=== PATIENT | female | born 1930 | race Caucasian/White ===

== ENCOUNTER 2018-01-07 00:53 | Observation (INO) | payer OTHER, MEDICARE ==
[2018-01-07 01:05] LABS: PLATELET COUNT 156 10^3/uL (150-400)
[2018-01-07] MEDS ORDERED: ASPIRIN 325 MG TAB PO ONE (01:08)
--- NOTE | 2018-01-07 01:11 | EDPHY ---
H & P Stated Complaint: FROM ID CP SINCE 2 P.M. PRESSURE IN CHEST/STENT 11/03 Time Seen by Provider: 01/07/18 00:58 HPI/ROS: Chief Complaint: Chest pain HPI: 87-year-old woman with a history of coronary artery disease status post stenting in September. She is visiting from [place]. She arrived today and went up to [place]. At 2:00 a.m. This afternoon she has started developing substernal chest pressure, 2/10. This persisted in the evening until 11:00 a.m. In the evening when it became significantly worse, up to an 8/10. [place] She took 3 nitroglycerin around. She is now pain-free. She also has a history of hypertension hyperlipidemia. Did have a mild GA at the time of her stenting in September. No recent illness. No leg pain or swelling. ROS: 10 systems were reviewed and were negative except those elements noted in the HPI. PMH: Coronary artery disease, hypertension, hyperlipidemia Social History: No smoking, no alcohol, no recreational drug use Family History: non-contributory Physical Exam: Gen: Awake, Alert, No Distress HEENT: Nose: no rhinorrhea Eyes: PERRLA, EOMI Mouth: Moist mucosa Neck: Supple, no JVD Chest: nontender, lungs clear to auscultation Heart: S1, S2 normal, 3 in 6 systolic murmur best heard in the right heart border Abd: Soft, non-tender, no guarding Back: no CVA tenderness, no midline tenderness Ext: no edema, non-tender Skin: no rash Neuro: CN II-XII intact, Sensation grossly intact, Strength 5/5 in bilateral upper and lower extremities - Personal History Current Tetanus/Diphtheria Vaccine: Yes Current Tetanus Diphtheria and Acellular Pertussis (TDAP): Yes - Medical/Surgical History Hx Asthma: No Hx Chronic Respiratory Disease: No Hx Diabetes: Yes Hx Cardiac Disease: No Hx Renal Disease: No Hx Cirrhosis: No Hx Alcoholism: No Hx HIV/AIDS: No Hx Splenectomy or Spleen Trauma: No Other PMH: GA 2018 WITH STENTS, HTN, HIGH CHOLESTEROL, HYPERTHYROID, - Social History Smoking Status: Never smoked Constitutional: Initial Vital Signs Temperature (C) 37.1 C 01/07/18 00:55 Heart Rate 103 H 01/07/18 00:55 Respiratory Rate 18 01/07/18 00:55 Blood Pressure 175/92 H 01/07/18 00:55 O2 Delivery Mode Room Air O2 (L/minute) 4 Allergies/Adverse Reactions: No Known Allergies Allergy (Unverified 01/07/18 01:08) Home Medications: Medication Instructions Recorded Ascorbic Acid [Vitamin C] 1,000 mg PO 01/07/18 Cholecalciferol (Vitamin D3) 1,000 unit PO 01/07/18 [Vitamin D3] Clopidogrel Bisulfate [Plavix] 75 mg PO 01/07/18 Denosumab [Prolia] 60 mg SQ 01/07/18 Levothyroxine [Synthroid 88 mcg 88 mcg PO DAILY06 01/07/18 (*)] Multivitamins [Multivitamin (*)] 1 each PO DAILY 01/07/18 Rosuvastatin Calcium [Crestor 40mg 40 mg PO DAILY 01/07/18 (*)] Medical Decision Making - Diagnostics EKG Interpretation: ECG time 12:56 a.m., sinus tachycardia with a rate of 102, T-wave inversions in AVF. Nonspecific T-wave changes in V3 and V4. No acute ST segment changes. Imaging Results: CT scan of the chest is negative for PE. There is atherosclerotic disease in the coronary arteries in the aorta. No acute pulmonary disease per Dr. Crane. Imaging: Discussed imaging studies w/ call center coordinator Radiologist ED Course/Re-evaluation: 87-year-old [place] with chest pain and shortness of breath. Initial oxygen saturations are 80%. She is improved with oxygen here. No acute ischemic changes on her ECG. Initial D-dimer is elevated. Will obtain CT angiogram of the chest to rule out PE. CT scan of the chest is negative for PE. There is atherosclerotic disease in the coronary arteries in the aorta. No acute pulmonary disease per Dr. Crane. Patient remains pain-free. I have discussed with the hospitalist, Dr. Thrasher. He will admit to his service for further care. - Data Points Laboratory Results: Laboratory Results 01/07/18 00:58 01/07/18 00:58 01/07/18 01/07/18 01/07/18 01:01 00:58 00:58 WBC RBC Hgb Hct MCV MCH MCHC RDW Plt Count MPV Neut % (Auto) Lymph % (Auto) Sutter % (Auto) Eos % (Auto) Baso % (Auto) Nucleat RBC Rel Count Absolute Neuts (auto) Absolute Lymphs (auto) Absolute Monos (auto) Absolute Eos (auto) Absolute Basos (auto) Absolute Nucleated RBC Immature Gran % Immature Gran # D-Dimer 1.16 ug/mLFEU H ug/mLFEU (0.00-0.50) Sodium 140 mEq/L mEq/L (135-145) Potassium 4.4 mEq/L mEq/L (3.3-5.0) Chloride 102 mEq/L mEq/L (97-110) Carbon Dioxide 29 mEq/l mEq/l (22-31) Anion Gap 9 mEq/L mEq/L (8-16) BUN 29 mg/dL H mg/dL (7-23) Creatinine 0.8 mg/dL mg/dL (0.6-1.0) Estimated GFR > 60 Glucose 108 mg/dL H mg/dL (70-100) Calcium 9.4 mg/dL mg/dL (8.5-10.4) POC Troponin I 0.03 ng/mL ng/mL (0.00-0.08) 01/07/18 00:58 WBC 5.24 10^3/uL 10^3/uL (3.80-9.50) RBC 4.21 10^6/uL 10^6/uL (4.18-5.33) Hgb 13.1 g/dL g/dL (12.6-16.3) Hct 41.7 % % (38.0-47.0) MCV 99.0 fL fL (81.5-99.8) MCH 31.1 pg pg (27.9-34.1) MCHC 31.4 g/dL L g/dL (32.4-36.7) RDW 13.6 % % (11.5-15.2) Plt Count 156 10^3/uL 10^3/uL (150-400) MPV 9.3 fL fL (8.7-11.7) Neut % (Auto) 62.6 % % (39.3-74.2) Lymph % (Auto) 29.2 % % (15.0-45.0) Sutter % (Auto) 5.9 % % (4.5-13.0) Eos % (Auto) 1.1 % % (0.6-7.6) Baso % (Auto) 1.0 % % (0.3-1.7) Nucleat RBC Rel Count 0.0 % % (0.0-0.2) Absolute Neuts (auto) 3.28 10^3/uL 10^3/uL (1.70-6.50) Absolute Lymphs (auto) 1.53 10^3/uL 10^3/uL (1.00-3.00) Absolute Monos (auto) 0.31 10^3/uL 10^3/uL (0.30-0.80) Absolute Eos (auto) 0.06 10^3/uL 10^3/uL (0.03-0.40) Absolute Basos (auto) 0.05 10^3/uL 10^3/uL (0.02-0.10) Absolute Nucleated RBC 0.00 10^3/uL 10^3/uL (0-0.01) Immature Gran % 0.2 % % (0.0-1.1) Immature Gran # 0.01 10^3/uL 10^3/uL (0.00-0.10) D-Dimer Sodium Potassium Chloride Carbon Dioxide Anion Gap BUN Creatinine Estimated GFR Glucose Calcium POC Troponin I Medications Given: Discontinued Medications Aspirin (Aspirin) 325 mg PO EDNOW ONE Stop: 01/07/18 01:09 Last Admin: 01/07/18 01:11 Dose: 325 mg Point of Care Test Results: Chemistry 01/07/18 01:01 POC Troponin I 0.03 ng/mL ng/mL (0.00-0.08) Departure - Departure Disposition: [facility] Acute Clinical Impression: Chest pain Condition: Fair
[2018-01-07] MEDS ORDERED: IOPAMIDOL (ISOVUE 370) 100 ML BTL IV ONE (01:35)
[2018-01-07] MEDS ORDERED: ACETAMINOPHEN 325 MG TAB PO PRN (02:16)
[2018-01-07] MEDS ORDERED: ONDANSETRON 4 MG/2 ML VIAL IVP PRN (02:16)
[2018-01-07] MEDS ORDERED: ONDANSETRON DISINTEGRATING 4 MG TAB PO PRN (02:16)
--- NOTE | 2018-01-07 02:43 | PDGENHP ---
History and Physical - Chief Complaint Chest pain - History of Present Illness 87 yo F w/ hx of CAD s/p PCI 2 months ago presents with chest pain. Patient is visiting from [place]. She traveled to [place] today and had an episode of severe central chest pain at rest. The pain radiated to her back and reminded her of her previous angina leading to the stent placement. She took NTG x3 and the pain resolved. She is chest pain free currently. ECG reveals inferior TWI's and troponin is negative. Of note, she stopped taking her aspirin 2 days ago at the advise of her son, who is a home staging specialist. She is still taking Plavix. Case discussed with ED physician Dr. Handy; records reviewed in EMR. History Information - Allergies/Home Medication List Allergies/Adverse Reactions: No Known Allergies Allergy (Unverified 01/07/18 01:08) Home Medications: Ascorbic Acid [Vitamin C] 1,000 mg PO 01/07/18 [Last Taken Unknown] Cholecalciferol (Vitamin D3) [Vitamin D3] 1,000 unit PO 01/07/18 [Last Taken Unknown] Clopidogrel Bisulfate [Plavix] 75 mg PO 01/07/18 [Last Taken Unknown] Denosumab [Prolia] 60 mg SQ 01/07/18 [Last Taken Unknown] Levothyroxine [Synthroid 88 mcg (*)] 88 mcg PO DAILY06 01/07/18 [Last Taken Unknown] Multivitamins [Multivitamin (*)] 1 each PO DAILY 01/07/18 [Last Taken Unknown] Rosuvastatin Calcium [Crestor 40mg (*)] 40 mg PO DAILY 01/07/18 [Last Taken Unknown] I have personally reviewed and updated: family history, medical history - Past Medical History coronary artery disease - Surgical History Reports: coronary stent - Family History Additional family history: Adult daughter in the room healthy - Social History Smoking Status: Never smoked Review of Systems Review of Systems: ROS: 10pt was reviewed & negative except for what was stated in HPI & below Physical Exam Physical Exam: Temp Pulse Resp BP Pulse Ox 36.8 C 94 18 176/98 H 98 01/07/18 02:00 01/07/18 02:00 01/07/18 02:00 01/07/18 02:00 01/07/18 02:00 Constitutional: no apparent distress, not in pain Eyes: PERRL, EOMI Ears, Nose, Mouth, Throat: moist mucous membranes, no oral mucosal ulcers Cardiovascular: regular rate and rhythym, systolic murmur Respiratory: no respiratory distress, clear to auscultation Gastrointestinal: normoactive bowel sounds, soft, non-tender abdomen Skin: warm, normal color Musculoskeletal: full muscle strength, no muscle tenderness Neurologic: AAOx3, CN II-XII Intact Psychiatric: interacting appropriately, not anxious Lab Data & Imaging Review 01/07/18 00:58 01/07/18 00:58 WBC 5.24 10^3/uL (3.80-9.50) 01/07/18 00:58 RBC 4.21 10^6/uL (4.18-5.33) 01/07/18 00:58 Hgb 13.1 g/dL (12.6-16.3) 01/07/18 00:58 Hct 41.7 % (38.0-47.0) 01/07/18 00:58 MCV 99.0 fL (81.5-99.8) 01/07/18 00:58 MCH 31.1 pg (27.9-34.1) 01/07/18 00:58 MCHC 31.4 g/dL (32.4-36.7) L 01/07/18 00:58 RDW 13.6 % (11.5-15.2) 01/07/18 00:58 Plt Count 156 10^3/uL (150-400) 01/07/18 00:58 MPV 9.3 fL (8.7-11.7) 01/07/18 00:58 Neut % (Auto) 62.6 % (39.3-74.2) 01/07/18 00:58 Lymph % (Auto) 29.2 % (15.0-45.0) 01/07/18 00:58 Mccone % (Auto) 5.9 % (4.5-13.0) 01/07/18 00:58 Eos % (Auto) 1.1 % (0.6-7.6) 01/07/18 00:58 Baso % (Auto) 1.0 % (0.3-1.7) 01/07/18 00:58 Nucleat RBC Rel Count 0.0 % (0.0-0.2) 01/07/18 00:58 Absolute Neuts (auto) 3.28 10^3/uL (1.70-6.50) 01/07/18 00:58 Absolute Lymphs (auto) 1.53 10^3/uL (1.00-3.00) 01/07/18 00:58 Absolute Monos (auto) 0.31 10^3/uL (0.30-0.80) 01/07/18 00:58 Absolute Eos (auto) 0.06 10^3/uL (0.03-0.40) 01/07/18 00:58 Absolute Basos (auto) 0.05 10^3/uL (0.02-0.10) 01/07/18 00:58 Absolute Nucleated RBC 0.00 10^3/uL (0-0.01) 01/07/18 00:58 Immature Gran % 0.2 % (0.0-1.1) 01/07/18 00:58 Immature Gran # 0.01 10^3/uL (0.00-0.10) 01/07/18 00:58 D-Dimer 1.16 ug/mLFEU (0.00-0.50) H 01/07/18 00:58 Sodium 140 mEq/L (135-145) 01/07/18 00:58 Potassium 4.4 mEq/L (3.3-5.0) 01/07/18 00:58 Chloride 102 mEq/L (97-110) 01/07/18 00:58 Carbon Dioxide 29 mEq/l (22-31) 01/07/18 00:58 Anion Gap 9 mEq/L (8-16) 01/07/18 00:58 BUN 29 mg/dL (7-23) H 01/07/18 00:58 Creatinine 0.8 mg/dL (0.6-1.0) 01/07/18 00:58 Estimated GFR > 60 01/07/18 00:58 Glucose 108 mg/dL (70-100) H 01/07/18 00:58 Calcium 9.4 mg/dL (8.5-10.4) 01/07/18 00:58 POC Troponin I 0.03 ng/mL (0.00-0.08) 01/07/18 01:01 Imaging Review: CTPE Prelim: CT PE: No PE No infiltrates Small calc granulomas on right Old healed left rib fxs, sternal fx, and T6 compression Extensive vasc calcification aorta and coronaries Spoke w Dr Handy at 209am Finer Assessment & Plan Assessment: 87 yo F w/ hx of CAD s/p PCI presents with chest pain. Plan: 1. Chest pain - Central chest pain radiating to back, relieved with NTG. This reminded her of previous angina leading to stent placement 2 months ago. ECG reveals TWI's in leads III, AVF; troponin negative. HEART score of 6 indicative of need for further testing. - Admit to PCU for observation - Monitor on telemetry, trend cardiac enzymes - Noting mildly abnormal ECG and previous revascularization, will order exercise stress with MPI (patient tells me she usually exercises for stress tests) 2. Hx CAD - w/ LUDMILA to RCA 2 months ago in [place]. She is taking Plavix but stopped taking ASA 2 days ago. - Acute management as above - Advised to continue DAPT for at least 1 year 3. Hypothyroid - Continue LTX Diet - NPO Code - Full Ppx - LMWH Dispo - Admit under observation status
--- NOTE | 2018-01-07 05:06 | CPEKG ---
Test Reason : OPEN Blood Pressure : / mmHG Vent. Rate : 092 BPM Atrial Rate : 093 BPM P-R Int : 165 ms QRS Dur : 090 ms QT Int : 369 ms P-R-T Axes : 037 001 -21 degrees QTc Int : 457 ms Sinus rhythm Nonspecific T abnormalities, inferior leads Confirmed by Luc Handy ([id number]) on 01/07/2018 5:05:21 AM Referred By: Confirmed By:Luc Handy
--- NOTE | 2018-01-07 05:06 | CPEKG ---
Test Reason : OPEN Blood Pressure : / mmHG Vent. Rate : 102 BPM Atrial Rate : 102 BPM P-R Int : 178 ms QRS Dur : 093 ms QT Int : 377 ms P-R-T Axes : 053 007 -30 degrees QTc Int : 492 ms Sinus tachycardia Abnormal T, consider ischemia, inferior leads Confirmed by Luc Handy ([id number]) on 01/07/2018 5:05:21 AM Referred By: Confirmed By:Luc Handy
[2018-01-07 07:55] LABS: PLATELET COUNT 148 10^3/uL (150-400)
[2018-01-07] MEDS ORDERED: FAMOTIDINE 20 MG TAB PO ONE (09:33)
[2018-01-07] MEDS ORDERED: TEMAZEPAM 15 MG CAP PO PRN (09:33)
[2018-01-07] MEDS ORDERED: NITROGLYCERIN 0.4 MG BTL SL PRN (09:33)
[2018-01-07] MEDS ORDERED: diphenhydrAMINE 25 MG CAP PO ONE (09:33)
[2018-01-07] MEDS ORDERED: DIAZEPAM 5 MG TAB PO ONE (09:33)
[2018-01-07] MEDS ORDERED: fentaNYL 100 MCG/2 ML INJ ONE (09:58)
[2018-01-07] MEDS ORDERED: IOPAMIDOL (ISOVUE-370) 150 ML BTL IV ONE (09:58)
[2018-01-07] MEDS ORDERED: MIDAZOLAM 2 MG/2 ML VIAL ONE (09:58)
[2018-01-07] MEDS ORDERED: LIDOCAINE 1% 300 MG/30 ML SDV ONE (09:58)
[2018-01-07] MEDS ORDERED: ASPIRIN EC 325 MG TAB PO ONE (10:13)
[2018-01-07] MEDS: CLOPIDOGREL BISULFATE 75 MG TAB PO SCH (10:16)
--- NOTE | 2018-01-07 10:17 | GCON ---
CARDIOLOGY CONSULTATION DATE OF CONSULTATION: 01/07/2018 INDICATION FOR CONSULTATION: New onset of acute substernal chest pain, known history of coronary art primitivo disease, positive troponin, and noncompliance with aspirin therapy. HISTORY OF PRESENT ILLNESS: The patient is a pleasant 87-year-old female from [place], who flew from [facility] to [place] and then drove up to [place] to visit her grandson yesterday. She sta karlee that last evening she developed an acute onset of substernal chest pressure that radiated to her back associated with shortness of breath that felt identical to the pain she experienced approximatel y 2 months ago that resulted in percutaneous coronary intervention to the right coronary artery x2 wi th a complex intervention with atherectomy of a chronic total occlusion per her son who is a rheumato logist. The patient states that the symptoms persisted. She was able to take sublingual nitroglycer in x3, which resolved her pain completely. Upon arrival to [facility], she states he r pain is completely resolved. Her initial ECG demonstrated sinus rhythm with T-wave inversions in t he inferior leads. Initial troponin was negative. Subsequent followup troponin was elevated with a value of 0.047. Currently, at the time of my exam, she is resting comfortably. She is pain-free. PAST MEDICAL HISTORY: Notable for newly diagnosed coronary artery disease. No other significant past medical history. MEDICATIONS ON ADMISSION: Include vitamin C 1000 mg daily, vitamin D3 1000 units daily, Plavix 75 mg daily, Prolia 60 mg subcu, Synthroid 88 mcg daily, multivitamin daily, and rosuvastatin 40 mg daily. SOCIAL HISTORY: She lives in [place]. She smoked briefly as a teenager. FAMILY HISTORY: Noncontributory. PHYSICAL EXAMINATION: VITAL SIGNS: Weight of 44.1 kg. Blood pressure 156/80, heart rate of 74 in s inus rhythm, oxygen saturation 90% on room air, temperature 36.6. GENERAL: She is awake, alert, kaur ented, and appropriate. In no apparent distress at this time. NECK: There is no evidence of JVP or carotid bruits. LUNGS: Clear to auscultation bilaterally. CARDIAC: S1, S2. Regular rate and rhy thm. No murmurs, rubs, or gallops. ABDOMEN: Soft, nontender, nondistended. There is no pulsatile mass or abdominal bruit. EXTREMITIES: There is no evidence of cyanosis, clubbing or edema. LABORATORY DATA: White blood cell count of 5.29, hemoglobin of 13, hematocrit of 40, platelet count of 148. D-dimer 1.16. Sodium 139, potassium 4.4, chloride 103, bicarb 31, BUN 24, creatinine 0.7, g lucose 83, magnesium 2.3. Initial point of care troponin 0.03, increased to 0.047. DATA: ECG demonstrated sinus tachycardia at 102 beats per minute with T-wave inversions in leads 3 a nd aVF. There is minimal ST-segment depression in leads V3, V4, and V5. No previous ECG for compari son. IMPRESSION: 1. Acute onset of chest pain. 2. Non ST-segment elevation myocardial infarction. 3. Recent percutaneous coronary intervention to the right coronary artery. 4. Noncompliance with aspirin. SUMMARY: The patient is a pleasant 87-year-old female with a known history of coronary artery diseas e with PCI to the RCA approximately 2 months ago. She lives in [place], came to the [place] to visit her grandson, where she developed acute onset of pain that felt like the pain identical to wha t she experienced 2 months ago prior to her percutaneous coronary intervention. It was relieved with 3 sublingual nitroglycerin. She is currently pain-free. At the advice of her son who is a rheumato logist, she discontinued aspirin 2 days ago. She states she has been compliant with all of her other medications. Her troponin is now positive at 0.047 with T-wave inversions in the inferior leads and minimal ST depressions in the mid precordial leads. At this point, I have recommended diagnostic left heart catheterization. I have discussed the risks and benefits with the patient in detail. I have had a phone conversation with her [id number] an d son. PLAN: 1. Plan for diagnostic left heart catheterization this morning. 2. Will return to aspirin 81 mg daily. 3. Continue Plavix 75 mg daily. 4. Will work on improved blood pressure control post left heart catheterization. /[id number]/MODL
--- NOTE | 2018-01-07 11:07 | PDPROPOC ---
Sedation Plan of Care Sedation Plan of Care: vital signs stable, mental status noted, patient educated of risks, benefits, alternatives, patient can tolerate sedation ASA Classification: ASA 2 Planned drugs: fentanyl, midazolam Mallampati Score: Class 2 Mallampati Reference Image:
[2018-01-07 11:13] LABS: INR 0.99 (0.83-1.16); PROTIME(PATIENT) 13.3 SEC (12.0-15.0)
[2018-01-07] MEDS ORDERED: hydrALAZINE 20 MG/ML VIAL ONE (11:36)
[2018-01-07] MEDS ORDERED: ATROPINE SULFATE 1 MG/10 ML SYR IVP PRN (12:36)
--- NOTE | 2018-01-07 13:03 | CPIP ---
DATE OF PROCEDURE: 01/07/2018 PROCEDURE PERFORMED: Diagnostic left heart catheterization. INDICATION FOR LEFT HEART CATHETERIZATION: Acute onset of chest pain, positive troponin, history of known coronary artery disease with PCI to the proximal RCA 2 months ago, and recent noncompliance wit h aspirin. DESCRIPTION OF PROCEDURE: After informed consent was obtained for left heart catheterization, the mayda ramírez was brought to the cardiac catheterization lab where she was prepped and draped in sterile fash ion. Using the modified Seldinger technique with micropuncture technique, a 6-Martiniquais catheter was pl aced into the right common femoral artery without complications. A JL4 catheter was used to take sara ges of the left coronary anatomy in multiple projections. JL4 catheter was exchanged over a guidewir e for a JR4 catheter. JR4 catheter was used to take images of the right coronary anatomy in multiple projections. JR4 catheter was exchanged over a guidewire for an angled pigtail catheter. Attempts were made to cross the aortic valve with angled pigtail catheter unsuccessfully. Further attempts we re discontinued. There was evidence of some aortic valve calcification. The angled pigtail catheter was removed over a guidewire without complications. The 6-Martiniquais sheath was pulled with adequate he mostasis. Of note, patient was hypertensive prior to the onset of procedure. She was she received hydralazine IV 10 mg x1 and required an additional 5 mg of hydralazine. At the time this dictation, blood pressu re was markedly improved to 151/68. Starting blood prior pressure on arrival to the fish hatchery laborer was ove r 200. Cannulation of the right common femoral artery occurred with blood pressure at approximately 160/80. FINDINGS: 1. Left main normal size and caliber. Bifurcates into left anterior descending and left circumflex coronary arteries. There is no evidence of coronary disease within the left main. 2. Left anterior descending artery demonstrates an 80% proximal stenosis at the level of the first d iagonal branch. There is a 2nd tubular long 70% stenosis at the level of the second diagonal and ext ending distally. Distal LAD has some mild luminal irregularities. There is a 50% proximal stenosis in the first diagonal branch which is approximately 2 mm in diameter. 3. There is a heavily calcified ostial stenosis of the circumflex vessel of approximately 90% to 95% . There are [id number] luminal irregularities to the remainder of the circumflex vessel. 4. The right coronary artery demonstrates patent stents to the proximal RCA through the midportion o f the vessel. There is a 30% to 40% distal stenosis just proximal to the bifurcation of the PDA and PLV. There is a 30% to 40% stenosis in the proximal portion of the PDA. CONCLUSION: 1. Significant 2-vessel coronary artery disease in the proximal and mid left anterior descending. T here is also a 90% to 95% ostial circumflex lesion. These lesions are heavily calcified, particularl y the ostial circumflex. Intervention to the vessels was thought to be extremely high risk. 2. Right coronary artery stents are patent with no evidence of subacute stent thrombosis. There is no evidence of flow-limiting coronary artery disease with the remainder of the right coronary artery. PLAN: 1. We will focus on optimal medical management including improvement in blood pressure control. 2. Continue aspirin and Plavix. 3. As long as patient remains pain-free, would recommend optimal medical management. We will discus s with patient regarding potential surgical options. /[id number]/MODL
[2018-01-07] MEDS: ASPIRIN EC 81 MG TAB PO SCH (13:48)
[2018-01-07] MEDS: ENOXAPARIN 40 MG/0.4 ML SYR SC SCH (14:21)
[2018-01-07] MEDS: LEVOTHYROXINE 88 MCG TAB PO SCH (14:21)
[2018-01-07] MEDS: ESCITALOPRAM OXALATE 10 MG TAB PO SCH (14:21)
[2018-01-07] MEDS: cycloSPORINE 0.05% 30 DROPERETTE/BOX EACHEYE SCH ×2 (14:31→20:44)
[2018-01-07] MEDS ORDERED: OXYMETAZOLINE 30 ML NASAL SPRAY EACHNARE PRN (15:20)
--- NOTE | 2018-01-07 16:47 | HOSPPROG ---
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, better now - cont norvasc # nasal congestion - afrin # hypothyroid - synthroid Subjective: s/p cath; requesting afrin for nasal congestion; seen with dtr and son Objective: Vital Signs Temp Pulse Resp BP Pulse Ox 36.7 C 89 12 137/66 H 90 L 01/07/18 14:13 01/07/18 14:13 01/07/18 14:13 01/07/18 14:13 01/07/18 14:13 Laboratory Results 01/07/18 07:24 01/07/18 07:24 PT 13.3 SEC (12.0-15.0) 01/07/18 10:50 INR 0.99 (0.83-1.16) 01/07/18 10:50 35 minutes of direct patient care time were spent today - Physical Exam Constitutional: no apparent distress, appears nourished ICD10 Worksheet Patient Problems: Problems Problem Status Onset Chest pain Acute
[2018-01-07] MEDS ORDERED: ALPRAZolam 0.5 MG TAB PO SCH (21:00)
[2018-01-07] MEDS ORDERED: ROSUVASTATIN CALCIUM 20 MG TAB PO SCH (21:00)
[2018-01-08] MEDS: LEVOTHYROXINE 88 MCG TAB PO SCH (07:14)
[2018-01-08 08:01] VITALS: BP 143/74
[2018-01-08] MEDS: ENOXAPARIN 40 MG/0.4 ML SYR SC SCH (08:15)
[2018-01-08] MEDS: ASPIRIN EC 81 MG TAB PO SCH (08:16)
[2018-01-08] MEDS: CLOPIDOGREL BISULFATE 75 MG TAB PO SCH (08:16)
[2018-01-08] MEDS: ESCITALOPRAM OXALATE 10 MG TAB PO SCH (08:16)
[2018-01-08] MEDS ORDERED: POLYETHYLENE GLYCOL 3350 17 GM PKT PO ONE (08:45)
--- NOTE | 2018-01-08 09:05 | ASMTCMCOM ---
CM Note CM Note Notes: 01/08/2018 Case Management Note Pt admitted for chest pain. To supervisor dental laboratory yesterday 01/07. Met w/pt, daughter Kallie [phone], granddaughter Sanjuana [phone] and grandson Perez [phone]. Perez lives in [place]. Kallie, pt and Sanjuana live in [place]. Pt plans to fly home to [place] on Wednesday with Kallie and Sanjuana. Sunday 01/14 pt has a flight to her winter home in [facility]. Pt is independent in ADL's in [place]. There are no case management d/c needs identified. Case Management d/c poc: independent with family support and follow up as directed. Case Management available if needs change. Date Signed: 01/08/2018 09:05 AM Electronically Signed By:Petra England RN
--- NOTE | 2018-01-08 09:16 | PDCARPN ---
Cardiology Progress Note Assessment/Plan: Assessment: 1. Acute coronary syndrome with chest pain and mild troponin elevation 2. Severe 2 vessel coronary artery disease 3. Patent stents to the right coronary artery 4. Hypertension Plan: -increase Crestor to 40 mg daily Increase amlodipine to 5 mg daily Continue aspirin 81 mg daily Continue Plavix 75 mg daily Discussed the importance of remaining compliant with current medical therapy. 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 01/08/18 09:18 Subjective: Mrs. Melara is feeling well this morning. No events overnight. She remains chest pain free. Telemetry demonstrates normal sinus rhythm. She did have 110 beat run of supraventricular tachycardia yesterday afternoon that was asymptomatic. Systolic blood blood pressure last 2 readings of 167 and 143. 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 Left heart catheterization yesterday demonstrated patent stents to the right coronary artery. No flow limiting disease within the remainder of the RCA. There is a heavily calcified ostial 90-95% stenosis of the circumflex. There is also a 80% proximal LAD stenosis at the level of the 1st diagonal branch and a long tubular 70% mid LAD stenosis. Given the high risk complexity of intervention to the circumflex and LAD, decision was made for medical management. Mrs. Melara feels back to baseline. She denies complaints of chest pain, chest pressure, shortness of breath or dyspnea. Right groin site is stable. No evidence of hematoma or ecchymosis. Distal pulses are intact. Reviewed/Discussed With: family, hospitalist Time Spent with Patient: greater than 25 minutes Time Spent with Patient: Greater than 25 minutes spent on this patients care, greater than 50% of time spent counseling, educating, and coordinating care regarding the above mentioned plan. Objective: Vital Signs (8 Hrs) Temp Pulse Resp BP Pulse Ox 01/08/18 07:57 36.3 C 74 18 143/74 H 92 01/08/18 04:50 36.7 C 75 16 167/79 H 95 Intake/Output (24 Hrs) 01/07/18 01/08/18 01/09/18 05:59 05:59 05:59 Intake Total 600 Balance 600 Intake: Oral (ml) 600 Other: Weight 44.1 kg Number of Voids Bedpan 1 Toilet 2 Result Diagrams: 01/07/18 07:24 01/07/18 07:24 Cardiac Labs: Cardiac Lab Results (72 Hrs) 01/07/18 07:24 Troponin I 0.047 H - Physical Exam Ears, Nose, Mouth, Throat: moist mucous membranes Cardiovascular: regular rate and rhythm, no rubs, no gallops, systolic murmur, pulses symmetric bilat Peripheral Pulses: 2+: carotid (R), carotid (L), femoral (R), dorsalis-pedis (R) , dorsalis-pedis (L) Respiratory: expiratory wheeze Gastrointestinal: normoactive bowel sounds Skin: no rashes, other (New abrasion on the right lower extremity. Dressing in place.) Neurologic: AAOx3, CN II-XII grossly intact Psychiatric: cooperative, interactive ICD10 Worksheet Patient Problems: Problems Problem Status Onset Chest pain Acute
--- NOTE | 2018-01-08 09:45 | GDS ---
DIAGNOSES: 1. Non-ST segment myocardial infarction. 2. History of coronary artery disease. 3. Hypertension. 4. Hypothyroid. HOSPITAL COURSE: This is an 87-year-old female, visiting from [place], who had had a recent stent p laced to her right coronary artery. She presented with chest pain reminiscent of her previous angina , as well as a mildly elevated troponin. 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 Coronary a ngiogram revealed a patent RCA stent, as well as 90-95% circumflex stenosis, 80% proximal LAD stenosi s, and 70% mid LAD stenosis. Given the risks involved with a complicated PCI, the decision was made to pursue medical management at this point. She has done well post catheterization. Her blood press ure has been elevated, her amlodipine has been increased from 2.5 mg to 5 mg daily. She has had dizz iness previously with beta blockers. She had not been taking her aspirin for 2 days prior to present ation, she has been instructed to continue both aspirin as well as Plavix. Her Crestor dose has been increased from 20 mg to 40 mg daily. 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 She is otherwise discharged in stable condition. BILLING: I spent more than 30 minutes on the day of discharge coordinating care. /[id number]/MODL
--- NOTE | 2018-01-08 10:40 | ASMTLACE ---
LACE Length of stay for Answers: 1 day current admission Acuity / Level of Answers: No Care: Did the patient have an inpatient admission? Comorbidities - select Answers: Coronary Artery Disease all that apply Diabetes (uncontrolled or controlled) Previous myocardial infarction Other Notes: HTN; Hypothyroid # of Emergency department Answers: 1-2 visits in the last 6 months Score: 7 Date Signed: 01/08/2018 10:39 AM Electronically Signed By:Petra England RN
--- NOTE | 2018-01-08 10:41 | ASMTDCNOTE ---
Case Management Discharge Discharge Order Complete? Answers: Yes Patient to Obtain Answers: Independently Medications Transportation Arranged Answers: Family/Friends Discharge Comments Notes: 01/08/2018 Case Management Note Pt to d/c independent with follow up as directed. SAL signed. Date Signed: 01/08/2018 10:40 AM Electronically Signed By:Petra England RN
[2018-01-08] MEDS ORDERED: ROSUVASTATIN CALCIUM 40 MG TAB PO SCH (21:00)
[2018-01-08] MEDS ORDERED: amLODIPine BESYLATE 5 MG TAB PO SCH (21:00)
[2018-01-09] MEDS ORDERED: amLODIPine BESYLATE 5 MG TAB PO SCH (09:00)
[2018-01-09] MEDS ORDERED: ROSUVASTATIN CALCIUM 40 MG TAB PO SCH (09:00)
== END 2018-01-08 11:40 | disposition home or self-care (01) ==
LOC: F2W 02:57
PROVIDERS: ADMIT Student in an Organized Health Care Education/Training Program; ATTEND Student in an Organized Health Care Education/Training Program
PROC: 4A023N7 Measurement of Cardiac Sampling and Pressure, Left Heart, Percutaneous Approach (ICD-10-PCS; principal; 2018-01-07)
DX: I21.3 ST elevation (STEMI) myocardial infarction of unspecified site (principal); I25.10 Atherosclerotic heart disease of native coronary artery without angina pectoris; I10 Essential (primary) hypertension; E03.9 Hypothyroidism, unspecified; E78.00 Pure hypercholesterolemia, unspecified; T39.016A Underdosing of aspirin, initial encounter; R09.81 Nasal congestion; Z95.5 Presence of coronary angioplasty implant and graft
CPT/HCPCS: 71045; 71275; 93005; 93458; 96372; 99285; G0378; J0360; J1644; J1650; J2250; J3010; Q9967; 84484-PO